=== PATIENT | female | born 1985 | race African-American/Black ===

== ENCOUNTER 2020-02-05 02:07 | Emergency (ER) | payer MEDICAID ==
[~2020-02-05] VITALS: Ht 157.5 cm; Wt 81.0 kg
[2020-02-05] MEDS ORDERED: ACETAMINOPHEN 325MG TABLET PO ONE (02:45)
[2020-02-05] MEDS ORDERED: PREDNISONE 20MG TABLET PO ONE (03:00)
[2020-02-05] MEDS ORDERED: ALBUTEROL 6.7GM HFA INHALER ORI ONE (03:00)
[2020-02-05 04:50] VITALS: BP 145/90
== END 2020-02-05 04:53 | disposition home or self-care (01) ==
LOC: ER 02:07
DX: J45.901 Unspecified asthma with (acute) exacerbation (principal); Z20.828 Contact with and (suspected) exposure to other viral communicable diseases; J06.9 Acute upper respiratory infection, unspecified; F17.200 Nicotine dependence, unspecified, uncomplicated
CPT/HCPCS: 71045; 87635; 93005; 94640; 99285; C9803; J7512